=== PATIENT | female | born 1990 | race Caucasian/White ===

== ENCOUNTER → 2018-03-19 11:44 | Outpatient (POV) | payer OTHER, SELFPAY ==
[2018-03-19 12:45] VITALS: BP 129/63; PULSE 80; RESP 18; O2SAT 98
--- NOTE | 2018-03-19 13:14 | HMH.PMCON ---
Assessment and Plan (1) Degenerative disc disease Current visit: Yes Status: Chronic Qualifiers: Spinal region: lumbar Qualified Code(s): M51.36 - Other intervertebral disc degeneration, lumbar region Category: Medical - Assessment and plan all Dx Assessment and Plan for all problems:: Patient is not a narcotic candidate due to her failure of a urine drug screen at the previous location also her lack of conservative treatments prior to opioids. I will order an MRI to the patient she may be a neurosurgical candidate. I will follow-up with her after her MRI. I gave her the order in order to have the MRI closer to home and it will be her responsibility to call us to follow-up after she has completed the MRI. This note was dictated using voice recognition software and may contain errors or omissions HPI - Data of Consult Consult date: 03/19/18 Requesting Physician: Deloris Garcia APRN Primary Care Provider: Blanco Gomez II - Consult Narrative Reason for consult: Back pain History of present illness: Ms. Cuellar is a 27 year old female who presents today for consultation in regards to her low back pain. Patient states she has had pain for years ever since she was a child and she was in her bathtub and could not get out. Patient does have an MRI from 2016 showing some possible nerve impingement at L4-L5. Patient states she has never seen a neurosurgeon. Patient was being managed by Dr. Adams. Patient states that she is too afraid to take epidural injections or any kind of injection she was receiving [place] from her pain physician. Patient was discharged due to an inappropriate drug screen. Patient states she does not allow this can happen unless it was somebody putting something in her homemade cigarettes. Patient states she is afraid of epidural injections ever since her fourth child. I discussed with the patient we do not do medication management. I did discuss with her potentially getting a new MRI and a neurosurgical consultation. She rates the pain a 9 out of 10 today. She states it is mostly in her back and radiating down into her bilateral legs. CC: Deloris Garcia APRN [facility] History I have reviewed the patient's past medical history: Yes Medical History: Denies:: Diabetes Mellitus Type 1, Diabetes Mellitus Type 2 - *Social History Smoking Status: Current every day smoker Tobacco Type: cigarettes # Packs/Day (cigarettes): 1 #Yrs smoked (if former smoker): 7 Alcohol Intake: never Occupational Status: unemployed Housing: house - Psychiatric History Expresses thoughts of harming self/others: None Suicide Plan Description: No Plan *Family Hx:: Unable to obtain Review of Systems - Review of Systems ROS General: no recent weight change, no fever, no sleep disturbances Respiratory: no cough, no shortness of air, no recurring pulmonary infections Cardiovascular/Peripheral Vascular: No chest pain, No palpitations, no edema, no shortness of breath. Gastrointestinal: no incontinence, normal bowel movements reported Genitourinary: no incontinence Musculoskeletal: Back pain, leg pain Psychiatric: normal mood/ affect Neurological: [denies weakness in extremities], [denies balance issues] Objective Vital signs: Pulse Resp BP Pulse Ox 80 18 129/63 98 03/19/18 12:45 03/19/18 12:45 03/19/18 12:45 03/19/18 12:45 Narrative: Physical Exam General: Alert and oriented x3, no acute distress, pleasant and cooperative, [on room air] Lungs: Resps E/U, Symmetrical chest expansion, Eyes: PERRL Musculoskeletal: Flexion and extension of lumbar spine somewhat guarded secondary to pain, deep tendon reflexes normal, strength in upper and lower extremities [5/5], slightly antalgic gait noted, positive straight leg raise test bilaterally Neurological: speech clear, lathe hand equal, no gross sensory deficits Opioid Risk Tool - Opioid Risk Tool-Femal
--- NOTE | 2018-03-19 13:17 | P.CONS_ITS ---
Assessment and Plan (1) Degenerative disc disease Current visit: Yes Status: Chronic Qualifiers: Spinal region: lumbar Qualified Code(s): M51.36 - Other intervertebral disc degeneration, lumbar region Category: Medical - Assessment and plan all Dx Assessment and Plan for all problems:: Patient is not a narcotic candidate due to her failure of a urine drug screen at the previous location also her lack of conservative treatments prior to opioids. I will order an MRI to the patient she may be a neurosurgical candidate. I will follow-up with her after her MRI. I gave her the order in order to have the MRI closer to home and it will be her responsibility to call us to follow-up after she has completed the MRI. This note was dictated using voice recognition software and may contain errors or omissions HPI - Data of Consult Consult date: 03/19/18 Requesting Physician: Deloris Garcia APRN Primary Care Provider: Blanco Gomez II - Consult Narrative Reason for consult: Back pain History of present illness: Ms. Cuellar is a 27 year old female who presents today for consultation in regards to her low back pain. Patient states she has had pain for years ever since she was a child and she was in her bathtub and could not get out. Patient does have an MRI from 2016 showing some possible nerve impingement at L4 -L5. Patient states she has never seen a neurosurgeon. Patient was being managed by Dr. Adams. Patient states that she is too afraid to take epidural injections or any kind of injection she was receiving [place] from her pain physician. Patient was discharged due to an inappropriate drug screen. Patient states she does not allow this can happen unless it was somebody putting something in her homemade cigarettes. Patient states she is afraid of epidural injections ever since her fourth child. I discussed with the patient we do not do medication management. I did discuss with her potentially getting a new MRI and a neurosurgical consultation. She rates the pain a 9 out of 10 today. She states it is mostly in her back and radiating down into her bilateral legs. CC: Deloris Garcia APRN [facility] History I have reviewed the patient's past medical history: Yes Medical History: Denies:: Diabetes Mellitus Type 1, Diabetes Mellitus Type 2 - *Social History Smoking Status: Current every day smoker Tobacco Type: cigarettes # Packs/Day (cigarettes): 1 #Yrs smoked (if former smoker): 7 Alcohol Intake: never Occupational Status: unemployed Housing: house - Psychiatric History Expresses thoughts of harming self/others: None Suicide Plan Description: No Plan *Family Hx:: Unable to obtain Review of Systems - Review of Systems ROS General: no recent weight change, no fever, no sleep disturbances Respiratory: no cough, no shortness of air, no recurring pulmonary infections Cardiovascular/Peripheral Vascular: No chest pain, No palpitations, no edema, no shortness of breath. Gastrointestinal: no incontinence, normal bowel movements reported Genitourinary: no incontinence Musculoskeletal: Back pain, leg pain Psychiatric: normal mood/ affect Neurological: [denies weakness in extremities], [denies balance issues] Objective Vital signs: Pulse Resp BP Pulse Ox 80 18 129/63 98 03/19/18 12:45 03/19/18 12:45 03/19/18 12:45 03/19/18 12:45 Narrative: Physical Exam General: Alert and oriented x3, no acute distress,
== END ==
PROVIDERS: PCP Family Medicine; Visit Provider Clinical Nurse Specialist Family Health
DX: M51.36 Other intervertebral disc degeneration, lumbar region (principal)
CPT/HCPCS: 99202